=== PATIENT | female | born 1940 | race Caucasian/White ===

== ENCOUNTER 2016-12-22 08:29 | Emergency (ER) | payer OTHER, MEDICAID ==
[~2016-12-22] VITALS: Ht 170.2 cm; Wt 77.1 kg
[~2016-12-22 08:29] MED LIST: AMLO5TAB4 PO; ASA; ATIVAN; CLON1TAB4 PO; COLACE; DIVA500T7 PO; FOSAMAX; LEVO25TA58 PO; LORAZEPAM; LOTENSIN; OLAN10TA3 PO; OMEP20CA4 PO; PRILOSEC; PROVACHOL; RISP3TAB5 PO; VALS160T2 PO; VERA80TA PO; VOLTAREN; WARF6TAB20 PO
--- NOTE | 2016-12-22 08:29 | NUR ---
KRISTINA SULLIVAN from [facility]. Placed in room 08. Placed on cardiac rn, blood pressure machine and pulse oximeter. To gown for exam. Side rails up. Dr. Velez at bedside for evaluation
[2016-12-22 08:30] VITALS: BP 153/70; PULSE 73; RESP 16; TEMP 97.3; O2SAT 97
--- NOTE | 2016-12-22 08:31 | NUR ---
Pt states that she tripped over her walker this morning. C/O right leg pain, pain more lateral knee area by palpation. No deformity, no abrasion, no swelling noted. Unable to lift leg from hip, minimal lift of left leg. Pt denies neck/back pain. Unable to bend bilat knees, unable to open legs on command or with assistance.
--- NOTE | 2016-12-22 09:09 | NUR ---
Pt lives at [facility].
[2016-12-22 09:27] LABS: BASOPHILS # (AUTO) 0.1 K/uL (0.0-0.2); BASOPHILS % (AUTO) 0.6 % (0.0-2.0); EOSINOPHILS % (AUTO) 0.4 % (0.0-4.0); HEMATOCRIT 38.1 % (36-48); HEMOGLOBIN 12.8 g/dL (12.0-16.0); LYMPHOCYTES # (AUTO) 1.5 K/uL (1.0-5.5); LYMPHOCYTES % (AUTO) 14.9 % (20.5-51.5); MEAN CORPUSCULAR HEMOGLOBIN 29 pg (27-31); MEAN CORPUSCULAR HGB CONC 34 % (32-36); MEAN CORPUSCULAR VOLUME 86 fL (79.0-98.0); MONOCYTES # (AUTO) 1.2 K/uL (0.0-1.0); MONOCYTES % (AUTO) 11.7 % (1.7-9.3); NEUTROPHILS # (AUTO) 7.1 K/uL (1.8-7.7); NEUTROPHILS % (AUTO) 72.4 % (40.0-70.0); PLATELET COUNT (AUTO) 229 K/uL (130-430); RED BLOOD CELL COUNT(AUTO) 4.46 MIL/uL (4.2-6.2); RED CELL DISTRIBUTION WIDTH 13.8 % (9.0-15.0); WHITE BLOOD COUNT (AUTO) 9.9 K/uL (4.8-10.8)
--- NOTE | 2016-12-22 09:30 | NUR ---
Back from radiology, tolerated well.
[2016-12-22 09:45] LABS: INR 0.9 (0.8-1.2)
[2016-12-22 09:54] LABS: ANION GAP 6 (5-15); CALCIUM 8.7 mg/dL (8.4-11.0); CHLORIDE 99 mmol/L (98-107); CREATININE 0.65 mg/dL (0.55-1.30); GLUCOSE 101 mg/dL (70-99); POTASSIUM 3.4 mmol/L (3.5-5.1); SODIUM SERUM 134 mmol/L (136-145); UREA NITROGEN, BLOOD 19 mg/dL (8-21)
[2016-12-22 09:58] LABS: ALANINE AMINOTRANSFERASE 18 U/L (12-78); ASPARTATE AMINOTRANSFERASE 18 U/L (10-37); TOTAL BILIRUBIN 0.4 mg/dL (0.0-1.0)
--- NOTE | 2016-12-22 10:52 | NUR ---
Pt up and placed in wheelchair. Iap Displays Analyst at bedside states that pt is always stiff and usually in wheelchair most of the day. Per expanded duty dental assistant, pt is at baseline level. aware. Pt states that she wants to go home.
--- NOTE | 2016-12-22 11:03 | NUR ---
Patient and welding process specialist given written and verbal discharge instructions and verbalizes understanding. ER MD discussed with patient and welding process specialist the results and treatment provided. Patient in stable condition. ID arm band removed. IV catheter removed intact and dressing applied, no active bleeding. Rx of ibuprofen given. Patient and welding process specialist educated on pain management and to follow up with PMD. Pain Scale 2/10. Opportunity for questions provided and answered.
[2016-12-22 11:05] VITALS: BP 121/54; PULSE 81; RESP 16; TEMP 97.3; O2SAT 98
== END 2016-12-22 11:05 | disposition home or self-care (01) ==
LOC: SED 08:49
DX: M16.0 Bilateral primary osteoarthritis of hip (principal); Z86.59 Personal history of other mental and behavioral disorders; W19.XXXA Unspecified fall, initial encounter; Y93.01 Activity, walking, marching and hiking; Y92.89 Other specified places as the place of occurrence of the external cause; Y99.8 Other external cause status
CPT/HCPCS: 36415; 71010; 73510-TC; 73552; 73590-TC; 80053; 83605; 83880; 84484; 85025; 85610-TC; 85730-TC; 87040-TC; 93005; 99285